=== PATIENT | female | born 1990 | race Caucasian/White ===

== ENCOUNTER → 2020-10-30 11:02 | Outpatient (CLI) | payer BC | END | disposition home or self-care (01) | LOC: D.LAB 11:02 | PROVIDERS: ATTEND Psychiatry & Neurology Neurology | DX: R56.9 Unspecified convulsions (principal) ==

== ENCOUNTER → 2020-12-10 10:48 | Outpatient (CLI) | payer BC | END | disposition home or self-care (01) | LOC: D.LAB 10:48 | PROVIDERS: ATTEND Psychiatry & Neurology Neurology | DX: R56.9 Unspecified convulsions (principal) ==

== ENCOUNTER → 2021-02-03 10:46 | Outpatient (CLI) | payer BC ==
[2021-02-03 11:23] LABS: BASOPHILS 0.2 % (0-2); EOSINOPHILS 0.6 % (0-7); HEMATOCRIT 34.7 % (36.0-48.0); HEMOGLOBIN 11.8 g/dL (12-16); LYMPHOCYTES 14.9 % (15-50); MCH 31.8 pg (26.0-34.0); MCV 93.5 fL (80.0-100.0); MEAN PLATELET VOLUME 6.6 fL (7.4-10.4); MONOCYTES 5.7 % (2-11); NEUTROPHILS 78.6 % (40-80); PLATELET COUNT 420 10x3/uL (130-400); RBC 3.71 10x6/uL (4.00-5.40); RDW 13.4 % (11.5-14.5); WBC 9.6 10x3/uL (4.8-10.8)
== END | disposition home or self-care (01) ==
LOC: D.LAB 10:46
PROVIDERS: ATTEND Psychiatry & Neurology Neurology
DX: R56.9 Unspecified convulsions (principal)